=== PATIENT | male | born 1970 | race Caucasian/White ===

== ENCOUNTER 2017-08-03 12:50 | Outpatient (CLI) | payer OTHER ==
[~2017-08-03 12:50] MED LIST: AMLODIPINE BES2.5 MG; ANAPROX275 MG; LODINE XL500 MG; METFORMIN HCL500 MG; NEURONTIN600 MG; POLY119PG PO; SURFAK240 M1 PO; ULTRACET PO; ZOCOR40 MG
== END 2017-08-03 14:29 | disposition home or self-care (01) ==
LOC: RAD 12:50
DX: M54.6 Pain in thoracic spine (principal); M54.5 Low back pain

== ENCOUNTER 2017-09-18 13:16 | Emergency (ER) | payer OTHER ==
[~2017-09-18] VITALS: Ht 157.5 cm; Wt 116.1 kg
[2017-09-18] MEDS ORDERED: TUSSI PRES-B L120 M1 PO (16:06)
[2017-09-18] MEDS ORDERED: ZITHROMAX1 GM PO (16:06)
== END 2017-09-18 16:24 | disposition home or self-care (01) ==
LOC: ER 13:16
DX: B34.9 Viral infection, unspecified (principal); J11.1 Influenza due to unidentified influenza virus with other respiratory manifestations

== ENCOUNTER 2018-01-02 13:57 | Outpatient (CLI) | payer OTHER ==
[~2018-01-02 13:57] MED LIST changes: +TUSSI PRES-B L120 M1 PO; +ZITHROMAX1 GM PO
== END 2018-01-02 15:00 | disposition home or self-care (01) ==
LOC: RAD 13:57
DX: M54.2 Cervicalgia (principal)

== ENCOUNTER 2018-03-16 21:01 | Emergency (ER) | payer OTHER ==
[~2018-03-16] VITALS: Ht 157.5 cm; Wt 117.9 kg
[2018-03-17] MEDS ORDERED: ULTRAM50 MG PO (01:16)
[2018-03-17] MEDS ORDERED: KETO10TA2 PO (01:16)
[2018-03-17] MEDS ORDERED: CYCLOBENZAPRINE10 MG PO (01:16)
[2018-03-17] MEDS ORDERED: ORPHENADRINE C100 MG PO (01:16)
== END 2018-03-17 01:38 | disposition home or self-care (01) ==
LOC: ER 21:01
DX: S86.112A Strain of other muscle(s) and tendon(s) of posterior muscle group at lower leg level, left leg, initial encounter (principal); X50.0XXA Overexertion from strenuous movement or load, initial encounter; Y93.39 Activity, other involving climbing, rappelling and jumping off; Y92.89 Other specified places as the place of occurrence of the external cause; Y99.8 Other external cause status

== ENCOUNTER 2018-07-31 08:15 | Emergency (ER) | payer OTHER ==
[~2018-07-31] VITALS: Ht 157.5 cm; Wt 122.5 kg
[~2018-07-31 08:15] MED LIST changes: +CYCLOBENZAPRINE10 MG PO; +KETO10TA2 PO; +ORPHENADRINE C100 MG PO; +ULTRAM50 MG PO
[2018-08-01] MEDS ORDERED: ZOFRAN ODT4 MG PO (06:38)
[2018-08-01] MEDS ORDERED: PEPCID40 MG PO (06:38)
== END 2018-07-31 11:59 | disposition home or self-care (01) ==
LOC: ER 08:15
DX: K29.60 Other gastritis without bleeding (principal)

== ENCOUNTER 2018-07-31 18:50 | Emergency (ER) | payer OTHER ==
[~2018-07-31] VITALS: Ht 157.5 cm; Wt 122.5 kg
[2018-08-01] MEDS ORDERED: PEPCID40 MG PO (06:38)
[2018-08-01] MEDS ORDERED: ZOFRAN ODT4 MG PO (06:38)
== END 2018-08-01 06:43 ==
LOC: ER 18:50
DX: R10.13 Epigastric pain (principal)

== ENCOUNTER 2019-01-26 11:49 | Emergency (ER) | payer OTHER ==
[~2019-01-26] VITALS: Ht 157.5 cm; Wt 117.9 kg
[~2019-01-26 11:49] MED LIST changes: +PEPCID40 MG PO; +ZOFRAN ODT4 MG PO
== END 2019-01-26 15:45 | disposition home or self-care (01) ==
LOC: ER 11:49
DX: M51.36 Other intervertebral disc degeneration, lumbar region (principal); M50.30 Other cervical disc degeneration, unspecified cervical region; M54.16 Radiculopathy, lumbar region

== ENCOUNTER 2019-03-07 16:33 | Emergency (ER) | payer OTHER ==
[~2019-03-07] VITALS: Ht 157.5 cm; Wt 117.9 kg
[2019-03-07] MEDS ORDERED: NEURONTIN800 MG PO (17:00)
[2019-03-07] MEDS ORDERED: DICLOFENAC SODI50 MG PO (19:10)
== END 2019-03-07 19:15 ==
LOC: ER 16:33
DX: M79.672 Pain in left foot (principal); M72.2 Plantar fascial fibromatosis

== ENCOUNTER → 2019-05-29 | Emergency (ER) | payer OTHER ==
[~2019-05-29] VITALS: Ht 157.5 cm; Wt 121.6 kg
[~2019-05-29] MED LIST changes: +DICLOFENAC SODI50 MG PO; +NEURONTIN800 MG PO
== END | disposition home or self-care (01) ==
LOC: ER 13:25
DX: S83.8X2A Sprain of other specified parts of left knee, initial encounter (principal); S90.01XA Contusion of right ankle, initial encounter; M25.562 Pain in left knee; M25.571 Pain in right ankle and joints of right foot; W01.0XXA Fall on same level from slipping, tripping and stumbling without subsequent striking against object, initial encounter; Y93.89 Activity, other specified; Y92.018 Other place in single-family (private) house as the place of occurrence of the external cause; Y99.8 Other external cause status

== ENCOUNTER 2019-05-31 08:01 | Outpatient (CLI) | payer OTHER | END 2019-05-31 08:04 | disposition home or self-care (01) | LOC: MRI 08:01 | DX: M25.562 Pain in left knee (principal); M23.211 Derangement of anterior horn of medial meniscus due to old tear or injury, right knee | CPT/HCPCS: 73721 ==

== ENCOUNTER → 2019-06-16 | Emergency (ER) | payer OTHER ==
[~2019-06-16] VITALS: Ht 157.5 cm; Wt 121.6 kg
== END | disposition left against medical advice (07) ==
LOC: ER 01:51
DX: Z53.20 Procedure and treatment not carried out because of patient's decision for unspecified reasons (principal)

== ENCOUNTER 2019-09-29 07:52 | Emergency (ER) | payer OTHER ==
[~2019-09-29] VITALS: Ht 157.5 cm; Wt 117.9 kg
[2019-09-30] MEDS ORDERED: PRILOSEC OTC20 MG (08:41)
[2019-09-30] MEDS ORDERED: ZITHROMAX500 MG PO (12:23)
== END 2019-09-29 14:58 | disposition home or self-care (01) ==
LOC: ER 07:52 → CPU-OBS 07:53 → ER 07:53
DX: R10.13 Epigastric pain (principal)

== ENCOUNTER 2019-09-30 08:24 | Emergency (ER) | payer OTHER ==
[~2019-09-30] VITALS: Ht 157.5 cm; Wt 117.9 kg
[2019-09-30] MEDS ORDERED: PRILOSEC OTC20 MG (08:41)
[2019-09-30] MEDS ORDERED: ZITHROMAX500 MG PO (12:23)
== END 2019-09-30 12:51 | disposition home or self-care (01) ==
LOC: ER 08:24
DX: R10.13 Epigastric pain (principal); B96.0 Mycoplasma pneumoniae [M. pneumoniae] as the cause of diseases classified elsewhere

== ENCOUNTER → 2019-12-29 | Emergency (ER) | payer OTHER ==
[~2019-12-29] VITALS: Ht 157.5 cm; Wt 117.9 kg
[~2019-12-29] MED LIST changes: +GABAPENTIN800 MG PO; +PRILOSEC OTC20 MG; +PROTONIX40 MG PO; +ZITHROMAX500 MG PO
== END | disposition left against medical advice (07) ==
LOC: ER 10:14
DX: Z53.20 Procedure and treatment not carried out because of patient's decision for unspecified reasons (principal)

== ENCOUNTER 2019-12-30 11:47 | Inpatient (IN) | payer OTHER ==
[~2019-12-30] VITALS: Ht 157.5 cm; Wt 117.9 kg
[~2019-12-30 11:47] MED LIST changes: -GABAPENTIN800 MG PO; -PROTONIX40 MG PO
[2020-01-08] MEDS ORDERED: PROTONIX40 MG PO (08:22)
[2020-01-08] MEDS ORDERED: GABAPENTIN800 MG PO (08:22)
== END 2020-01-08 09:50 | disposition home or self-care (01) | DRG 446 ==
LOC: ER 11:47 → SURH 20:13 → SEC-K 22:30 → SURH 23:54 → SEC-K 12-31 00:02 → SURH 12-31 16:33
PROVIDERS: ADMIT Internal Medicine; ATTEND Internal Medicine
PROC: 8E0ZXY6 Isolation (ICD-10-PCS; principal; 2019-12-30)
PROC: BW40ZZZ Ultrasonography of Abdomen (ICD-10-PCS; 2019-12-30)
PROC: 0FJB8ZZ Inspection of Hepatobiliary Duct, Via Natural or Artificial Opening Endoscopic (ICD-10-PCS; 2020-01-06)
DX: K83.1 Obstruction of bile duct (principal); K76.0 Fatty (change of) liver, not elsewhere classified; E11.65 Type 2 diabetes mellitus with hyperglycemia; E11.42 Type 2 diabetes mellitus with diabetic polyneuropathy; E66.8 Other obesity; R79.89 Other specified abnormal findings of blood chemistry

== ENCOUNTER 2020-05-19 09:56 | Emergency (ER) | payer OTHER ==
[~2020-05-19] VITALS: Ht 157.5 cm; Wt 106.1 kg
[~2020-05-19 09:56] MED LIST changes: +GABAPENTIN800 MG PO; +PROTONIX40 MG PO
[2020-05-19] MEDS ORDERED: PANADOL EXTRA500 MG (10:16)
[2020-05-19] MEDS ORDERED: ORPHENADRINE C100 MG PO (13:18)
[2020-05-19] MEDS ORDERED: KETO10TA2 PO (13:18)
== END 2020-05-19 13:52 | disposition home or self-care (01) ==
LOC: ER 09:56
DX: G89.29 Other chronic pain (principal); M54.5 Low back pain; M62.830 Muscle spasm of back; M54.2 Cervicalgia

== ENCOUNTER 2020-10-07 07:16 | Emergency (ER) | payer OTHER ==
[~2020-10-07] VITALS: Ht 157.5 cm; Wt 113.4 kg
[~2020-10-07 07:16] MED LIST changes: +PANADOL EXTRA500 MG
[2020-10-07] MEDS ORDERED: SIMVASTATIN5 MG (07:43)
[2020-10-07] MEDS ORDERED: FORTAMET500 MG (07:43)
[2020-10-07] MEDS ORDERED: NEURONTIN800 MG (07:44)
[2020-10-07] MEDS ORDERED: NASAL MIST126 ML (07:45)
[2020-10-07] MEDS ORDERED: KETO10TA2 PO (10:52)
[2020-10-07] MEDS ORDERED: CLOTRIMAZOLE-BE15 G1 TOP (10:52)
== END 2020-10-07 10:58 | disposition home or self-care (01) ==
LOC: ER 07:16
DX: M77.32 Calcaneal spur, left foot (principal); M77.31 Calcaneal spur, right foot; M79.672 Pain in left foot; M79.671 Pain in right foot

== ENCOUNTER 2020-10-12 08:44 | Outpatient (CLI) | payer OTHER ==
[~2020-10-12 08:44] MED LIST changes: +CLOTRIMAZOLE-BE15 G1 TOP; +FORTAMET500 MG; +NASAL MIST126 ML; +NEURONTIN800 MG; +SIMVASTATIN5 MG
== END 2020-10-12 08:45 | disposition home or self-care (01) ==
LOC: NUCLEAR 08:44
PROVIDERS: ATTEND Internal Medicine Hematology & Oncology
DX: C7A.094 Malignant carcinoid tumor of the foregut, unspecified (principal); C77.2 Secondary and unspecified malignant neoplasm of intra-abdominal lymph nodes
CPT/HCPCS: 78816; A9552

== ENCOUNTER 2020-12-12 19:49 | Emergency (ER) | payer OTHER ==
[~2020-12-12] VITALS: Ht 160 cm; Wt 117.9 kg
[2020-12-12] MEDS ORDERED: LISINOPRIL5 MG (20:05)
== END 2020-12-12 20:39 | disposition home or self-care (01) ==
LOC: ER 19:49
DX: M54.2 Cervicalgia (principal); M54.5 Low back pain; M62.838 Other muscle spasm; M60.88 Other myositis, other site

== ENCOUNTER 2021-03-11 08:36 | Emergency (ER) | payer OTHER ==
[~2021-03-11] VITALS: Ht 157.5 cm; Wt 109.8 kg
[~2021-03-11 08:36] MED LIST changes: +LISINOPRIL5 MG
[2021-03-11] MEDS ORDERED: NORFLEX100MG PO (12:32)
[2021-03-11] MEDS ORDERED: KETO10TA2 PO (12:32)
== END 2021-03-11 13:52 | disposition home or self-care (01) ==
LOC: ER 08:36
DX: M54.2 Cervicalgia (principal); M54.5 Low back pain

== ENCOUNTER 2021-05-05 22:01 | Emergency (ER) | payer OTHER ==
[~2021-05-05] VITALS: Ht 157.5 cm; Wt 111.1 kg
[~2021-05-05 22:01] MED LIST changes: +NORFLEX100MG PO
[2021-05-06] MEDS ORDERED: ZOFRAN8 MG PO (02:12)
[2021-05-06] MEDS ORDERED: PEPCID40 MG PO (02:12)
== END 2021-05-06 02:33 ==
LOC: ER 22:01
DX: K52.89 Other specified noninfective gastroenteritis and colitis (principal)

== ENCOUNTER 2021-07-19 07:56 | Emergency (ER) | payer OTHER ==
[~2021-07-19] VITALS: Ht 160 cm; Wt 114.3 kg
[~2021-07-19 07:56] MED LIST changes: +ZOFRAN8 MG PO
== END 2021-07-19 10:01 | disposition home or self-care (01) ==
LOC: ER 07:56
DX: M54.89 Other dorsalgia (principal)

== ENCOUNTER 2021-08-21 23:29 | Emergency (ER) | payer OTHER ==
[~2021-08-21] VITALS: Ht 160 cm; Wt 117.9 kg
== END 2021-08-22 02:21 | disposition home or self-care (01) ==
LOC: ER 23:29
DX: A05.8 Other specified bacterial foodborne intoxications (principal); Z11.52 Encounter for screening for COVID-19

== ENCOUNTER 2021-12-10 09:30 | Emergency (ER) | payer OTHER ==
[~2021-12-10] VITALS: Ht 160 cm; Wt 97.5 kg
== END 2021-12-10 11:48 | disposition home or self-care (01) ==
LOC: ER 09:30
DX: M54.59 Other low back pain (principal); I10 Essential (primary) hypertension; E11.9 Type 2 diabetes mellitus without complications; E78.00 Pure hypercholesterolemia, unspecified; Z79.84 Long term (current) use of oral hypoglycemic drugs; Z85.07 Personal history of malignant neoplasm of pancreas; Z88.5 Allergy status to narcotic agent

== ENCOUNTER 2022-03-14 20:23 | Emergency (ER) | payer OTHER ==
[~2022-03-14] VITALS: Ht 160 cm; Wt 113.4 kg
== END 2022-03-15 00:35 | disposition home or self-care (01) ==
LOC: ER 20:23
DX: T07.XXXA Unspecified multiple injuries, initial encounter (principal); W18.30XA Fall on same level, unspecified, initial encounter; Y93.01 Activity, walking, marching and hiking; Y92.481 Parking lot as the place of occurrence of the external cause; Y99.9 Unspecified external cause status

== ENCOUNTER 2022-04-03 08:35 | Emergency (ER) | payer OTHER ==
[~2022-04-03] VITALS: Ht 157.5 cm; Wt 111.1 kg
[2022-04-03] MEDS ORDERED: NEURONTIN800 MG PO (08:46)
[2022-04-03] MEDS ORDERED: CYCLOBENZAPRINE10 MG PO (09:20)
== END 2022-04-03 09:29 | disposition home or self-care (01) ==
LOC: ER 08:35
DX: M62.830 Muscle spasm of back (principal); M54.10 Radiculopathy, site unspecified; E11.9 Type 2 diabetes mellitus without complications; Z79.84 Long term (current) use of oral hypoglycemic drugs; I10 Essential (primary) hypertension; Z88.8 Allergy status to other drugs, medicaments and biological substances

== ENCOUNTER 2022-05-08 11:22 | Emergency (ER) | payer OTHER ==
[~2022-05-08] VITALS: Ht 157.5 cm; Wt 113.4 kg
== END 2022-05-08 14:36 | disposition home or self-care (01) ==
LOC: ER 11:22
DX: M54.50 Low back pain, unspecified (principal); Z88.8 Allergy status to other drugs, medicaments and biological substances

== ENCOUNTER 2022-06-20 08:14 | Emergency (ER) | payer OTHER ==
[~2022-06-20] VITALS: Ht 157.5 cm; Wt 108.9 kg
[2022-06-20] MEDS ORDERED: NORFLEX100MG PO (10:20)
[2022-06-20] MEDS ORDERED: KETO10TA2 PO (10:20)
== END 2022-06-20 11:33 | disposition home or self-care (01) ==
LOC: ER 08:14
DX: M54.9 Dorsalgia, unspecified (principal); M54.2 Cervicalgia

== ENCOUNTER 2022-09-13 08:10 | Emergency (ER) | payer OTHER ==
[~2022-09-13] VITALS: Ht 157.5 cm; Wt 112.5 kg
[2022-09-13] MEDS ORDERED: CELEBREX200MG PO (09:56)
[2022-09-13] MEDS ORDERED: METAXALONE400 MG PO (09:56)
== END 2022-09-13 10:47 | disposition home or self-care (01) ==
LOC: ER 08:10
DX: M54.9 Dorsalgia, unspecified (principal); W19.XXXA Unspecified fall, initial encounter; Y93.9 Activity, unspecified; Y92.9 Unspecified place or not applicable; Z88.8 Allergy status to other drugs, medicaments and biological substances

== ENCOUNTER 2022-10-22 11:49 | Emergency (ER) | payer OTHER ==
[~2022-10-22] VITALS: Ht 157.5 cm; Wt 113.4 kg
[~2022-10-22 11:49] MED LIST changes: +CELEBREX200MG PO; +METAXALONE400 MG PO
[2022-10-22] MEDS ORDERED: RELAFEN DS1000 MG PO (12:20)
[2022-10-22] MEDS ORDERED: METAXALONE800 MG PO (13:50)
[2022-10-22] MEDS ORDERED: CELEBREX200MG PO (13:50)
== END 2022-10-22 14:30 | disposition home or self-care (01) ==
LOC: ER 11:49
DX: M54.89 Other dorsalgia (principal); M54.2 Cervicalgia; Z88.8 Allergy status to other drugs, medicaments and biological substances; Z85.07 Personal history of malignant neoplasm of pancreas; G47.30 Sleep apnea, unspecified; E11.9 Type 2 diabetes mellitus without complications; Z79.84 Long term (current) use of oral hypoglycemic drugs

== ENCOUNTER 2023-04-23 08:15 | Emergency (ER) | payer OTHER ==
[~2023-04-23] VITALS: Ht 157.5 cm; Wt 104.3 kg
[~2023-04-23 08:15] MED LIST changes: +METAXALONE800 MG PO; +RELAFEN DS1000 MG PO
== END 2023-04-23 09:42 | disposition home or self-care (01) ==
LOC: ER 08:15
DX: M54.59 Other low back pain (principal); S33.5XXA Sprain of ligaments of lumbar spine, initial encounter; X50.0XXA Overexertion from strenuous movement or load, initial encounter; Y93.89 Activity, other specified; Y92.9 Unspecified place or not applicable; Y99.9 Unspecified external cause status
CPT/HCPCS: 96372; 99282; J1885

== ENCOUNTER 2024-03-20 09:25 | Emergency (ER) | payer OTHER ==
[~2024-03-20] VITALS: Ht 160 cm; Wt 104.3 kg
[2024-03-20] MEDS ORDERED: ORPHENADRINE CITRATE 30 MG/ML AMPUL IM STA (09:48)
[2024-03-20] MEDS ORDERED: KETOROLAC TROMETHAMINE 30 MG VIAL IM STA (09:48)
[2024-03-20] MEDS ORDERED: KETOROLAC TROMETHAMINE 30 MG VIAL ONE (09:52)
[2024-03-20] MEDS ORDERED: ORPHENADRINE CITRATE 30 MG/ML AMPUL ONE (09:54)
== END 2024-03-20 10:26 | disposition home or self-care (01) ==
LOC: ER 09:26
DX: M54.9 Dorsalgia, unspecified (principal); Z88.8 Allergy status to other drugs, medicaments and biological substances
CPT/HCPCS: 96372; 99282; J1885; J2360

== ENCOUNTER 2024-12-17 08:58 | Emergency (ER) | payer OTHER ==
[~2024-12-17] VITALS: Ht 157.5 cm; Wt 90.7 kg
[2024-12-17] MEDS ORDERED: METFORMIN HCL850 M1 PO (09:19)
[2024-12-17] MEDS ORDERED: KETOROLAC TROMETHAMINE 60 MG VIAL IM STA (12:46)
[2024-12-17] MEDS ORDERED: KETOROLAC TROMETHAMINE 60 MG VIAL IM ONE (12:47)
== END 2024-12-17 12:59 | disposition home or self-care (01) ==
LOC: ER 09:17
DX: S13.9XXA Sprain of joints and ligaments of unspecified parts of neck, initial encounter (principal); X58.XXXA Exposure to other specified factors, initial encounter; Y93.89 Activity, other specified; Y92.89 Other specified places as the place of occurrence of the external cause; Y99.9 Unspecified external cause status; Z85.89 Personal history of malignant neoplasm of other organs and systems

== ENCOUNTER 2025-02-27 04:55 | Emergency (ER) | payer OTHER ==
[~2025-02-27] VITALS: Ht 160 cm; Wt 90.7 kg
[~2025-02-27 04:55] MED LIST changes: +METFORMIN HCL850 M1 PO
[2025-02-27] MEDS ORDERED: CEFTRIAXONE SODIUM 1,000 MG VIAL IM STA (06:12)
[2025-02-27] MEDS ORDERED: KETOROLAC TROMETHAMINE 10 MG TABLET PO STA (06:12)
[2025-02-27 07:11] LABS: BASO % 0.7 % (0.1-1.2); EOS # 0.15 (0.04-0.54); EOS % 2.5 % (0.7-7.0); LYMPH # 2.57 (1.18-3.74); LYMPH % 42.8 % (19.3-53.1); MEAN PLATELET VOLUME 9.80 fl (9.4-12.4); MONO # 0.58 (0.24-0.82); MONO % 9.7 % (4.7-12.5); NEUT # 2.65 (1.56-6.13); NEUT % 44.0 % (34.0-71.1); RED CELL DISTRIBUTION WIDTH 12.5 % (11.6-14.4)
[2025-02-27 07:39] LABS: BUN CREA RATIO 16.0 (7.0-25.0); CREATININE SERUM 0.62 mg/dL (0.70-1.30); GFR 136.23; GLUCOSE FASTING 104.0 mg/dL (65-100); OSMOLALITY SERUM 279.0 MOSM/KG (275-295)
[2025-02-27] MEDS ORDERED: CELEBREX100 MG PO (10:52)
== END 2025-02-27 12:31 | disposition home or self-care (01) ==
LOC: ER 04:59
PROVIDERS: General Practice
DX: R60.0 Localized edema (principal); E11.9 Type 2 diabetes mellitus without complications; Z79.84 Long term (current) use of oral hypoglycemic drugs; Z88.5 Allergy status to narcotic agent

== ENCOUNTER 2025-05-21 09:59 | Emergency (ER) | payer OTHER ==
[~2025-05-21] VITALS: Ht 160 cm; Wt 99.8 kg
[~2025-05-21 09:59] MED LIST changes: +CELEBREX100 MG PO
[2025-05-21 10:18] VITALS: BP 138/85; O2SAT 99
[2025-05-21] MEDS ORDERED: ORPHENADRINE CITRATE 30 MG/ML AMPUL IM ONE (11:00)
[2025-05-21] MEDS ORDERED: KETOROLAC TROMETHAMINE 30 MG VIAL IM ONE (11:00)
[2025-05-21] MEDS ORDERED: DEXAMETHASONE SODIUM PHOSPHATE 4 MG/ML VIAL IM ONE (11:00)
[2025-05-21] MEDS ORDERED: KETO10TA2 PO (11:30)
[2025-05-21] MEDS ORDERED: ZANAFLEX4 M1 PO (11:30)
[2025-05-21] MEDS ORDERED: LIDODERM1 EACH TOP (11:30)
[2025-05-21] MEDS ORDERED: KETOROLAC TROMETHAMINE 30 MG VIAL ONE (11:36)
[2025-05-21] MEDS ORDERED: ORPHENADRINE CITRATE 30 MG/ML AMPUL ONE (11:37)
[2025-05-21] MEDS ORDERED: DEXAMETHASONE SODIUM PHOSPHATE 4 MG/ML VIAL ONE (11:37)
== END 2025-05-21 11:51 | disposition home or self-care (01) ==
LOC: ER 09:59
DX: M25.512 Pain in left shoulder (principal); E11.9 Type 2 diabetes mellitus without complications; Z88.5 Allergy status to narcotic agent

== ENCOUNTER 2025-06-25 10:13 | Emergency (ER) | payer OTHER ==
[~2025-06-25] VITALS: Ht 160 cm; Wt 99.8 kg
[~2025-06-25 10:13] MED LIST changes: +LIDODERM1 EACH TOP; +ZANAFLEX4 M1 PO
[2025-06-25] MEDS ORDERED: ONDANSETRON HCL 2 MG/ML VIAL IV ONE (12:00)
[2025-06-25] MEDS ORDERED: 0.9 % SODIUM CHLORIDE 1,000 ML IV SCH (12:00)
[2025-06-25] MEDS ORDERED: LACTOBACILLUS ACIDOPHILUS 1 CAP CAP PO ONE (12:00)
[2025-06-25] MEDS ORDERED: FAMOTIDINE/PF 20 MG/2 ML VIAL IV ONE (12:00)
[2025-06-25 12:37] LABS: BASO % 0.2 % (0.1-1.2); EOS # 0.02 (0.04-0.54); EOS % 0.2 % (0.7-7.0); LYMPH # 0.80 (1.18-3.74); LYMPH % 6.8 % (19.3-53.1); MEAN PLATELET VOLUME 9.50 fl (9.4-12.4); MONO # 0.41 (0.24-0.82); MONO % 3.5 % (4.7-12.5); NEUT # 10.55 (1.56-6.13); NEUT % 89.0 % (34.0-71.1); RED CELL DISTRIBUTION WIDTH 12.0 % (11.6-14.4)
[2025-06-25 12:39] LABS: ERYTHROCYTE SEDIMENTATION RATE 10 mm/hr (0-20)
[2025-06-25 13:12] LABS: URINE APPEARANCE Clear; URINE BILIRRUBIN Negative (NEGATIVE); URINE BLOOD Negative; URINE COLOR Yellow; URINE GLUCOSE Negative (NEGATIVE); URINE KETONE Negative (NEGATIVE); URINE LEUKOCYTE Negative; URINE NITRATE Negative; URINE PROTEIN Negative (NEGATIVE); URINE UROBILINOGEN 0.2 E.U./dl
[2025-06-25 13:16] LABS: URINE BACTERIA 4.7 uL (0.0-1933); URINE EPITHELIAL CELLS 1.5 uL (0.0-38.8); URINE RBC 7.3 uL (0.0-20.8); URINE WBC 5.0 uL (0.0-23.2)
[2025-06-25 13:20] LABS: URINE CAST 0.00 uL (0.0-1.40)
[2025-06-25 13:58] LABS: ALT/SGPT 35.0 U/L (12-78); AST/SGOT 25.0 U/L (15-37); BILIRUBIN TOTAL 0.51 mg/dL (0.3-1.2); BUN CREA RATIO 26.0 (7.0-25.0); CREATININE SERUM 0.62 mg/dL (0.70-1.30); GFR 135.7; GLOBULINA 3.6 G/DL (2.4-3.5); GLUCOSE FASTING 109.0 mg/dL (65-100); OSMOLALITY SERUM 281.0 MOSM/KG (275-295)
[2025-06-25] MEDS ORDERED: ABATINEX680 MG PO (15:50)
[2025-06-25] MEDS ORDERED: PEPCID AC20 MG PO (15:50)
== END 2025-06-25 16:02 | disposition home or self-care (01) ==
LOC: ER 10:13
PROVIDERS: Student in an Organized Health Care Education/Training Program
DX: K52.9 Noninfective gastroenteritis and colitis, unspecified (principal); A08.8 Other specified intestinal infections; E11.9 Type 2 diabetes mellitus without complications; Z79.84 Long term (current) use of oral hypoglycemic drugs; Z88.5 Allergy status to narcotic agent

== ENCOUNTER 2025-07-13 14:28 | Inpatient (IN) | payer OTHER ==
[~2025-07-13] VITALS: Ht 160 cm; Wt 99.8 kg
[~2025-07-13 14:28] MED LIST changes: +ABATINEX680 MG PO; +PEPCID AC20 MG PO
--- NOTE | 2025-07-13 15:45 | NUR ---
PACIENTE ALERTA Y ORIENTADO X3 REFIERE FIEBRE, DOLOR GENERALIZADO Y TOS. SE MIDE S/V Y SE UBICA PARA SER EVALUADO.
[2025-07-13] MEDS ORDERED: FAMOTIDINE/PF 20 MG/2 ML VIAL IV ONE (16:15)
[2025-07-13] MEDS ORDERED: ACETAMINOPHEN 500 MG GEL..CAP PO ONE ×2 (16:15→17:37)
[2025-07-13] MEDS ORDERED: FAMOTIDINE/PF 20 MG/2 ML VIAL ONE (17:38)
[2025-07-13 19:41] LABS: BASO % 0.3 % (0.1-1.2); EOS # 0.01 (0.04-0.54); EOS % 0.1 % (0.7-7.0); LYMPH # 1.71 (1.18-3.74); LYMPH % 12.5 % (19.3-53.1); MEAN PLATELET VOLUME 10.10 fl (9.4-12.4); MONO # 1.37 (0.24-0.82); MONO % 10.0 % (4.7-12.5); NEUT # 10.50 (1.56-6.13); NEUT % 76.7 % (34.0-71.1); RED CELL DISTRIBUTION WIDTH 12.2 % (11.6-14.4)
[2025-07-13 19:49] LABS: COVID-19 AG NEGATIVE (NEGATIVE)
[2025-07-13 19:52] LABS: URINE APPEARANCE Clear; URINE BILIRRUBIN Negative (NEGATIVE); URINE BLOOD Trace; URINE COLOR Yellow; URINE GLUCOSE Negative (NEGATIVE); URINE KETONE Negative (NEGATIVE); URINE LEUKOCYTE Negative; URINE NITRATE Negative; URINE PROTEIN Negative (NEGATIVE); URINE UROBILINOGEN 0.2 E.U./dl
[2025-07-13 19:55] LABS: URINE RBC 12.8 uL (0.0-20.8)
[2025-07-13 19:56] LABS: URINE BACTERIA 2.2 uL (0.0-1933); URINE CAST 0.00 uL (0.0-1.40); URINE EPITHELIAL CELLS 0.1 uL (0.0-38.8); URINE WBC 0.4 uL (0.0-23.2)
[2025-07-13 20:09] LABS: ALT/SGPT 38.0 U/L (12-78); AST/SGOT 32.0 U/L (15-37); BILIRUBIN TOTAL 0.43 mg/dL (0.3-1.2); BUN CREA RATIO 12.0 (7.0-25.0); CREATININE SERUM 0.73 mg/dL (0.70-1.30); GFR 112.39; GLOBULINA 3.9 G/DL (2.4-3.5); GLUCOSE FASTING 120.0 mg/dL (65-100); OSMOLALITY SERUM 276.0 MOSM/KG (275-295)
--- NOTE | 2025-07-13 21:21 | NUR ---
SE ORIENTA PACIENTE ACERCA DE TRATAMIENTO. REFIERE ENTENDER Y ACEPTAR. SE COLECTAN MUESTRAS DE LABORATORIO GLORIA PRESCRITAS Y SE ANALY ENVASE CON INSTRUCCIONES PARA U/A. SE ADMINITRAN MEDICAMENTOS GLORIA PRESCRITOS Y SE NOTIFICA ESTUDIO PENDIENTE.
[2025-07-13] MEDS ORDERED: AZITHROMYCIN 500 MG VIAL IV ONE (23:00)
[2025-07-13] MEDS ORDERED: CEFTRIAXONE SODIUM 2,000 MG VIAL IV ONE (23:00)
[2025-07-13] MEDS ORDERED: CEFTRIAXONE SODIUM 2,000 MG in 0.9 % SODIUM CHLORIDE 100 ML IV SCH (23:26)
[2025-07-13] MEDS ORDERED: FAMOTIDINE/PF 20 MG in 0.9 % SODIUM CHLORIDE 100 ML IV SCH (23:27)
[2025-07-13] MEDS ORDERED: AZITHROMYCIN 500 MG VIAL IV SCH (23:27)
[2025-07-13] MEDS ORDERED: GUAIFENESIN/DEXTROMETHORPHAN 1 TAB TABLET PO SCH (23:27)
[2025-07-13] MEDS ORDERED: INSULIN LISPRO 1,000 UNIT/10 ML UNITS SUBCUTANEO PRN (23:30)
[2025-07-13] MEDS ORDERED: DEXTROSE 50 % IN WATER 0.5 G/ML DISP.SYRIN IV PRN (23:30)
[2025-07-14 08:41] VITALS: BP 124/73; O2SAT 97
[2025-07-14 08:55] LABS: BASO % 0.3 % (0.1-1.2); EOS # 0.02 (0.04-0.54); EOS % 0.1 % (0.7-7.0); LYMPH # 1.22 (1.18-3.74); LYMPH % 7.8 % (19.3-53.1); MEAN PLATELET VOLUME 9.50 fl (9.4-12.4); MONO # 1.27 (0.24-0.82); MONO % 8.1 % (4.7-12.5); NEUT # 12.98 (1.56-6.13); NEUT % 83.2 % (34.0-71.1); RED CELL DISTRIBUTION WIDTH 12.3 % (11.6-14.4)
[2025-07-14 09:26] LABS: BUN CREA RATIO 9.0 (7.0-25.0); CREATININE SERUM 0.78 mg/dL (0.70-1.30); GFR 104.12; GLUCOSE FASTING 139.0 mg/dL (65-100); OSMOLALITY SERUM 267.0 MOSM/KG (275-295)
[2025-07-14 21:50] VITALS: BP 152/81
[2025-07-15 01:08] VITALS: BP 140/86; O2SAT 98
[2025-07-15 08:15] LABS: BASO % 0.3 % (0.1-1.2); EOS # 0.00 (0.04-0.54); EOS % 0.0 % (0.7-7.0); LYMPH # 1.40 (1.18-3.74); LYMPH % 10.3 % (19.3-53.1); MEAN PLATELET VOLUME 10.40 fl (9.4-12.4); MONO # 1.97 (0.24-0.82); NEUT # 10.05 (1.56-6.13); NEUT % 74.2 % (34.0-71.1); RED CELL DISTRIBUTION WIDTH 12.4 % (11.6-14.4)
[2025-07-15 08:21] LABS: MONO % 14.5 % (4.7-12.5)
[2025-07-15 08:36] LABS: INR 1.1
[2025-07-15 08:53] LABS: ALT/SGPT 40.0 U/L (12-78); AST/SGOT 28.0 U/L (15-37); BILIRUBIN TOTAL 0.5 mg/dL (0.3-1.2); BUN CREA RATIO 14.0 (7.0-25.0); CREATININE SERUM 0.58 mg/dL (0.70-1.30); GFR 146.56; GLOBULINA 3.6 G/DL (2.4-3.5); GLUCOSE FASTING 143.0 mg/dL (65-100); OSMOLALITY SERUM 273.0 MOSM/KG (275-295)
[2025-07-15] MEDS ORDERED: AZITHROMYCIN 500 MG VIAL IV ONE (09:16)
[2025-07-15 10:48] VITALS: BP 111/73; O2SAT 98
== END 2025-07-15 14:08 | disposition home or self-care (01) | DRG 193 ==
LOC: ER 14:29 → MEDJ 23:26
PROVIDERS: General Practice; Internal Medicine Infectious Disease; ADMIT Internal Medicine; ATTEND Internal Medicine
PROC: BW21ZZZ Computerized Tomography (CT Scan) of Abdomen and Pelvis (ICD-10-PCS; principal; 2025-07-13)
DX: J18.9 Pneumonia, unspecified organism (principal); A41.9 Sepsis, unspecified organism; N39.0 Urinary tract infection, site not specified; E11.9 Type 2 diabetes mellitus without complications; Z79.4 Long term (current) use of insulin; D72.829 Elevated white blood cell count, unspecified